=== PATIENT | male | born 1935 | race Caucasian/White ===

== ENCOUNTER 2020-12-30 06:23 | Day surgery (SDC) | payer MEDICARE ==
[2020-12-30] VITALS (9 sets, daily range): BP systolic 118–163; BP diastolic 66–102
[~2020-12-30] VITALS: Ht 175.3 cm; Wt 96.6 kg
[~2020-12-30 06:23] MED LIST: CEPH-571 PO
[2020-12-30] MEDS ORDERED: normal saline 1,000 ML IV SCH ×2 (06:55→10:55)
[2020-12-30] MEDS ORDERED: diphenhydrAMINE 25mg capsule PO PRN (06:55)
[2020-12-30] MEDS ORDERED: LOVA40TA2 PO (07:06)
[2020-12-30] MEDS ORDERED: LOSA1TAB41 PO (07:06)
[2020-12-30] MEDS ORDERED: FLO0.4C PO (07:06)
[2020-12-30] MEDS ORDERED: ASPI-1265 PO (07:11)
[2020-12-30] MEDS ORDERED: UBID200C18 PO (07:11)
[2020-12-30] MEDS ORDERED: MAGN250T11 PO (07:11)
[2020-12-30] MEDS ORDERED: VITAMIN C PO (07:11)
[2020-12-30 07:40] LABS: BASOPHILS % (AUTO) 0.5 % (0-1); EOSINOPHILS # (AUTO) 0.4 X10'3 (0-0.9); EOSINOPHILS % (AUTO) 9.5 % (0-6); HEMATOCRIT 41.8 % (42.0-52.0); HEMOGLOBIN 14.1 g/dl (14.0-17.9); LYMPHOCYTES # (AUTO) 0.8 X10'3 (1.1-4.8); LYMPHOCYTES % (AUTO) 18.3 % (21-51); MEAN CORPUSCULAR HEMOGLOBIN 32.5 PG (27.0-31.0); MEAN CORPUSCULAR HGB CONC 33.7 g/dL (33.0-36.5); MEAN CORPUSCULAR VOLUME 96.5 FL (78-98); MEAN PLATELET VOLUME 9.2 FL (7.4-10.4); MONOCYTES # (AUTO) 0.3 X10'3 (0-0.9); MONOCYTES % (AUTO) 6.8 % (2-12); NEUTROPHILS # (AUTO) 2.9 X10'3 (1.8-7.7); NEUTROPHILS % (AUTO) 64.9 % (42-75); PLATELET COUNT 153 X10'3 (140-440); RED BLOOD COUNT 4.34 X10'6 (4.70-6.10); RED CELL DISTRIBUTION WIDTH 13.2 % (11.5-14.5); WHITE BLOOD COUNT 4.5 X10'3 (4.5-11.0)
[2020-12-30 07:49] LABS: ALBUMIN 3.4 G/DL (3.4-5.0); ANION GAP 9 (8-16); BLOOD UREA NITROGEN 23 MG/DL (7-18); BUN/CREATININE RATIO 19.8 (5.4-32.0); CALCIUM 8.1 MG/DL (8.5-10.1); CHLORIDE 112 MMOL/L (99-107); CREATININE 1.16 MG/DL (0.60-1.10); GLUCOSE 166 MG/DL (70-104); MAGNESIUM 2.2 MG/DL (1.5-2.4); POTASSIUM 4.2 MMOL/L (3.5-5.1); SODIUM 146 MMOL/L (135-145); TOTAL CARBON DIOXIDE 25.1 MMOL/L (24-32); eGFR 60 ML/MIN
[2020-12-30] MEDS ORDERED: LIDOcaine 1% (10mg/ml)w/preservative injection 20ml MDV ONE (08:37)
[2020-12-30] MEDS ORDERED: midazolam 1 mg/ML 2ml injection ONE ×2 (08:37→09:30)
[2020-12-30] MEDS ORDERED: fentaNYL/PF 50MCG/1 ML 2ML syringe ONE (08:37)
[2020-12-30] MEDS ORDERED: iohexol 350 MG/ML 50ML vial IV ONE ×2 (08:38→09:54)
[2020-12-30] MEDS ORDERED: iohexol 350MG/ML 100ml bottle IV ONE (08:38)
[2020-12-30] MEDS ORDERED: heparin 1,000unit/ml 10ml vial 10 ML ONE (08:38)
[2020-12-30] MEDS ORDERED: HYDROcodone/acetaminophen 10/325mg tab PO PRN (10:55)
[2020-12-30] MEDS ORDERED: ondansetron/PF 4mg/2ml inj IV PRN (10:55)
[2020-12-30] MEDS ORDERED: proCHLORperazine 10 MG/2 ml inj IV PRN (10:55)
[2020-12-30] MEDS ORDERED: HYDROcodone/acetaminophen 5mg/325mg tablet PO PRN (10:55)
[2020-12-31] MEDS ORDERED: pneumococcal 23-VAL P-sac vacc 25 mcg/0.5ml vial IMVAC ONE (10:00)
== END 2020-12-30 13:40 | disposition home or self-care (01) ==
LOC: SSTAY O 06:23
PROVIDERS: ATTEND Internal Medicine Cardiovascular Disease
DX: R06.09 Other forms of dyspnea (principal); I35.0 Nonrheumatic aortic (valve) stenosis; I25.718 Atherosclerosis of autologous vein coronary artery bypass graft(s) with other forms of angina pectoris; I25.82 Chronic total occlusion of coronary artery; E78.5 Hyperlipidemia, unspecified; I10 Essential (primary) hypertension; I65.23 Occlusion and stenosis of bilateral carotid arteries; I70.213 Atherosclerosis of native arteries of extremities with intermittent claudication, bilateral legs; Z98.890 Other specified postprocedural states; Z79.899 Other long term (current) drug therapy; Z79.82 Long term (current) use of aspirin; Z82.49 Family history of ischemic heart disease and other diseases of the circulatory system; Z80.6 Family history of leukemia
CPT/HCPCS: 36415; 80048; 83735; 85025; 85610; 93005; 93461; 99152; 99153; C1760; C1769; C1894; J1644; J2001; J2250; J3010; Q9967; A4620; A6258; C1751

== ENCOUNTER → 2021-01-24 | Outpatient (CLI) | payer MEDICARE ==
[~2021-01-24] MED LIST changes: +ASCO-134 PO; +ASPI-1265 PO; -CEPH-571 PO; +CHOL20002 PO; +FLO0.4C PO; +IODIXANOL 320 MG/ML INFUS..BTL 100ML IV ONE; +IODIXANOL 320 MG/ML INFUS..BTL 50ML IV ONE; +LOSA1TAB41 PO; +LOVA40TA2 PO; +MAGN250T11 PO; +UBID200C18 PO; +VITAMIN C PO
[2021-01-24 09:43] LABS: BASOPHILS % (AUTO) 0.4 % (0-1); EOSINOPHILS # (AUTO) 0.2 X10'3 (0-0.9); EOSINOPHILS % (AUTO) 3.3 % (0-6); HEMATOCRIT 43.7 % (42.0-52.0); HEMOGLOBIN 14.7 g/dl (14.0-17.9); LYMPHOCYTES % (AUTO) 20.5 % (21-51); MEAN CORPUSCULAR HEMOGLOBIN 32.5 PG (27.0-31.0); MEAN CORPUSCULAR HGB CONC 33.6 g/dL (33.0-36.5); MEAN CORPUSCULAR VOLUME 96.8 FL (78-98); MONOCYTES # (AUTO) 0.4 X10'3 (0-0.9); MONOCYTES % (AUTO) 7.1 % (2-12); NEUTROPHILS # (AUTO) 3.5 X10'3 (1.8-7.7); NEUTROPHILS % (AUTO) 68.7 % (42-75); PLATELET COUNT 183 X10'3 (140-440); RED BLOOD COUNT 4.52 X10'6 (4.70-6.10); WHITE BLOOD COUNT 5.1 X10'3 (4.5-11.0)
[2021-01-24 10:11] LABS: ALANINE AMINOTRANSFERASE 24 U/L (12-78); ALBUMIN 3.6 G/DL (3.4-5.0); ALBUMIN/GLOBULIN RATIO 1.2 (1.1-1.5); ALKALINE PHOSPHATASE 54 IU/L (46-116); ANION GAP 10 (8-16); ASPARTATE AMINO TRANSFERASE 17 U/L (10-37); BILIRUBIN,TOTAL 0.8 MG/DL (0.1-1.0); BLOOD UREA NITROGEN 22 MG/DL (7-18); BUN/CREATININE RATIO 18.5 (5.4-32.0); CHLORIDE 109 MMOL/L (99-107); CREATININE 1.19 MG/DL (0.60-1.10); GLUCOSE 139 MG/DL (70-104); POTASSIUM 4.4 MMOL/L (3.5-5.1); SODIUM 144 MMOL/L (135-145); TOTAL PROTEIN 6.6 G/DL (6.4-8.2); eGFR 58 ML/MIN
[2021-01-24 10:15] LABS: CALCIUM 8.6 MG/DL (8.5-10.1)
[2021-01-24 10:51] LABS: PARTIAL THROMBOPLASTIN TIME 32 SECONDS (22-32)
== END | disposition home or self-care (01) ==
LOC: RAD 09:02
PROVIDERS: ATTEND Internal Medicine Cardiovascular Disease
DX: K57.30 Diverticulosis of large intestine without perforation or abscess without bleeding (principal); K80.20 Calculus of gallbladder without cholecystitis without obstruction; R16.1 Splenomegaly, not elsewhere classified; N40.0 Benign prostatic hyperplasia without lower urinary tract symptoms; I70.0 Atherosclerosis of aorta; I71.2 Thoracic aortic aneurysm, without rupture; I25.10 Atherosclerotic heart disease of native coronary artery without angina pectoris; I08.0 Rheumatic disorders of both mitral and aortic valves; I65.23 Occlusion and stenosis of bilateral carotid arteries
CPT/HCPCS: 36415; 71046; 71275; 74174; 80053; 85025; 85610; 85730; 93306; 93880; 94010; 94727; 94729; Q9967

== ENCOUNTER 2021-02-13 07:50 | Inpatient (IN) | payer MEDICARE ==
[2021-02-11 12:42] LABS: CLARITY,URINE CLEAR (Clear); COLOR,URINE YELLOW (Yellow); GLUCOSE, URINE NEGATIVE (Neg); KETONES,URINE NEGATIVE (Neg); LEUKOCYTE ESTERASE ,URINE NEGATIVE (Neg); NITRITES, URINE NEGATIVE (Neg); OCCULT BLOOD,URINE NEGATIVE (Neg); PROTEIN,URINE NEGATIVE (Neg); UA COLLECTION TYPE CLN CATCH MIDSTREAM; UROBILINOGEN,URINE 0.2 E.U/dL (0.2-1.0)
[2021-02-11 12:45] LABS: BASOPHILS % (AUTO) 0.3 % (0-1); EOSINOPHILS # (AUTO) 0.2 X10'3 (0-0.9); EOSINOPHILS % (AUTO) 2.8 % (0-6); LYMPHOCYTES # (AUTO) 0.8 X10'3 (1.1-4.8); LYMPHOCYTES % (AUTO) 11.8 % (21-51); MEAN CORPUSCULAR HGB CONC 34.2 g/dL (33.0-36.5); MEAN CORPUSCULAR VOLUME 96.6 FL (78-98); MEAN PLATELET VOLUME 9.2 FL (7.4-10.4); MONOCYTES # (AUTO) 0.5 X10'3 (0-0.9); NEUTROPHILS # (AUTO) 5.1 X10'3 (1.8-7.7); NEUTROPHILS % (AUTO) 78.1 % (42-75); PRE OP HEMATOCRIT 43.4 % (42.0-52.0); PRE OP HEMOGLOBIN 14.9 g/dL (14.0-17.9); PRE OP PLATELET COUNT 183 X10'3 (140-440); RED CELL DISTRIBUTION WIDTH 13.6 % (11.5-14.5)
[2021-02-11 12:55] LABS: PRE OP INR 1.1 INR
[2021-02-11 12:56] LABS: ALBUMIN 3.6 G/DL (3.4-5.0); ALBUMIN/GLOBULIN RATIO 1.1 (1.1-1.5); ALKALINE PHOSPHATASE 62 IU/L (46-116); BLOOD UREA NITROGEN 20 MG/DL (7-18); BUN/CREATININE RATIO 19.8 (5.4-32.0); CALCIUM 8.8 MG/DL (8.5-10.1); CHLORIDE 106 MMOL/L (99-107); CREATININE 1.01 MG/DL (0.60-1.10); PRE OP ALT 22 U/L (30-65); PRE OP ANION GAP 10 (8-16); PRE OP AST 20 U/L (10-37); PRE OP GLUCOSE 133 MG/DL (70-104); PRE OP POTASSIUM 4.1 MMOL/L (3.4-5.1); PRE OP SODIUM 142 MMOL/L (135-145); TOTAL CARBON DIOXIDE 25.7 MMOL/L (24-32); TOTAL PROTEIN 6.8 G/DL (6.4-8.2); eGFR 70 ML/MIN
[2021-02-13] VITALS (32 sets, daily range): BP systolic 118–196; BP diastolic 61–125
[~2021-02-13] VITALS: Ht 175.3 cm; Wt 95.1 kg
[2021-02-13] MEDS: nitroPRUSSIDE (NIPRIDE) (200MCG/ML) 100ML Drip IV SCH ×2 (05:30→19:19)
[~2021-02-13 07:50] MED LIST changes: -IODIXANOL 320 MG/ML INFUS..BTL 100ML IV ONE; -IODIXANOL 320 MG/ML INFUS..BTL 50ML IV ONE; -VITAMIN C PO; +aspirin 325mg tablet PO ONE; +cefazolin/dext.iso 2gm/100ml IV ONE; +famotidine 20mg tablet PO ONE; +ondansetron/PF 4mg/2ml inj IV PRN; +phenylephrine 50 MG in NS 250ml IVPB IV SCH; +ringers solution, lacted 1,000 ML IV SCH
[2021-02-13] MEDS: phenylephrine 50 MG in NS 250ml IVPB IV SCH (08:25)
[2021-02-13] MEDS ORDERED: iohexol 350 MG/ML 50ML vial IV ONE (10:54)
[2021-02-13] MEDS ORDERED: iohexol 350MG/ML 100ml bottle IV ONE (10:54)
[2021-02-13] MEDS ORDERED: LIDOcaine 1% (10mg/ml)w/preservative injection 20ml MDV ONE (10:54)
[2021-02-13] MEDS ORDERED: heparin 1,000 UNITS/NS 500ml 1,500 ML ONE (10:54)
[2021-02-13] MEDS ORDERED: magnesium 4gm in 100ml NS 100 ML IV PRN (10:55)
[2021-02-13] MEDS ORDERED: potassium CL 10mEq/100ml bag 100 ML IV PRN (10:55)
[2021-02-13] MEDS ORDERED: ondansetron/PF 4mg/2ml inj IV PRN ×2 (10:55→12:35)
[2021-02-13] MEDS ORDERED: labetalol 20mg/4ml (5mg/ml) syringe IV PRN (10:55)
[2021-02-13] MEDS ORDERED: potassium Cl 40MEQ/1/2NS 520ml 520 ML IV PRN (10:55)
[2021-02-13] MEDS ORDERED: potassium Cl 20 mEq SR tablet PO PRN (10:55)
[2021-02-13] MEDS ORDERED: magnesium 2GM in 50ml NS 50 ML IV PRN (10:55)
[2021-02-13] MEDS ORDERED: acetaminophen 325mg tablet PO PRN (10:55)
[2021-02-13] MEDS ORDERED: docusate sod 100mg capsule PO PRN (10:55)
[2021-02-13] MEDS ORDERED: diphenhydrAMINE 25mg capsule PO PRN (10:55)
[2021-02-13] MEDS ORDERED: pantoprazole 40mg Tablet.DR PO PRN (10:55)
[2021-02-13] MEDS ORDERED: fentaNYL/PF 50MCG/1 ML 2ML syringe ONE (11:05)
[2021-02-13] MEDS ORDERED: midazolam 1 mg/ML 2ml injection ONE ×2 (11:05→11:31)
[2021-02-13] MEDS ORDERED: propofol inj 20 ML IV ONE ×2 (11:09)
[2021-02-13] MEDS ORDERED: heparin 1,000unit/ml 10ml vial 10 ML ONE (11:33)
[2021-02-13] MEDS ORDERED: protamine sulfate 10mg/ml inj. ONE (12:30)
[2021-02-13] MEDS ORDERED: meperidine/PF 25mg/ml syringe IV PRN ×3 (12:35)
[2021-02-13] MEDS ORDERED: morphine 2 MG/ML inj. syringe IV PRN (12:35)
[2021-02-13] MEDS ORDERED: morphine 4 MG/ML inj SYRINge IV PRN (12:35)
[2021-02-13] MEDS ORDERED: ringers solution, lacted 1,000 ML IV SCH (12:35)
[2021-02-13] MEDS ORDERED: proCHLORperazine 10 MG/2 ml inj IV PRN (12:35)
--- NOTE | 2021-02-13 12:42 | NUR ---
Received from OR via [facility] IN STABLE CONDITION , accompanied by CARDIOLOGY TECHNOLOGIST AND Anesthesiologist. Report given by CARDIOLOGY TECHNOLOGIST AND Anesthesiolgist. Addendum: 02/13/21 at 1516 by Georgina Strong RN Amended: Links added.
[2021-02-13] MEDS: hydrALAZINE 20mg/ml inj. IV PRN ×2 (13:10→14:51)
--- NOTE | 2021-02-13 14:12 | NUR ---
Received from OR via [facility] IN STABEL CONDITION , accompanied by Anesthesiologist and ASSISTANT DIRECTOR OF FINANCIAL AID report given by ASSISTANT DIRECTOR OF FINANCIAL AID AND Anesthesiolgist. Addendum: 02/13/21 at 1708 by Georgina Strong RN Amended: Links added.
--- NOTE | 2021-02-13 14:30 | NUR ---
ARTIRIAL RADIAL PRESSURE CUFF DC'D Addendum: 02/13/21 at 1522 by Georgina Strong RN Amended: Links added.
--- NOTE | 2021-02-13 15:00 | NUR ---
PATIENT BLADDER SCANNED FOR 1086 ML. TELLEZ CATHETER PLACED. Addendum: 02/13/21 at 1523 by Georgina Strong RN Amended: Links added.
--- NOTE | 2021-02-13 15:52 | NUR ---
PATIENT DISCHARGED FROM PACU IN STABLE CONDITION AFTER REPORT GIVEN. PATIENT TRANSFERRED VIA BED ON MONITOR WITH RN AND LOBBY PORTER. ART LINE PULLED AT 1550. Addendum: 02/13/21 at 1607 by Georgina Strong RN Amended: Links added.
[2021-02-13] MEDS: ceFAZolin 1GM/D5W- ADD-VANTAGE 50 ML IV SCH (17:30)
[2021-02-13] MEDS: normal saline 1000ml 1,000 ML IV SCH ×2 (17:32→20:18)
[2021-02-13] MEDS: sod chloride 0.9% 10ml flush syringe IV SCH (17:32)
[2021-02-13] MEDS ORDERED: LIDOcaine 2% 10ml TOPICAL JELLY (Urojet) TP ONE (18:00)
--- NOTE | 2021-02-13 18:16 | NUR ---
Called [facility] d/t high BP - give 02/14 0800 sched losartan now and NOT in the AM. Also, added PRN hydralazine order per [facility].
[2021-02-13] MEDS ORDERED: hydrALAZINE 20mg/ml inj. IV PRN (18:20)
[2021-02-13] MEDS ORDERED: losartan 50mg tablet PO ONE (18:25)
--- NOTE | 2021-02-13 18:27 | NUR ---
Pharmacy is not avail at this time review medication. CRN not able to override. called and messaged pharmacy to review STAT/
--- NOTE | 2021-02-13 18:33 | NUR ---
Patient in room PCU 3016. I have received report from Mony ESTEVEZ and had the opportunity to ask questions and assume patient care.
--- NOTE | 2021-02-13 19:01 | NUR ---
Problems reprioritized. Patient report given, questions answered & plan of care reviewed with HERB Wood.
[2021-02-13] MEDS: vancomycin/NS 1 GM ADD-VANTAGE 250 ML IV SCH (20:16)
[2021-02-14] VITALS: BP 168/72
[2021-02-14] MEDS: ceFAZolin 1GM/D5W- ADD-VANTAGE 50 ML IV SCH ×2 (00:33→07:25)
[2021-02-14] MEDS: sod chloride 0.9% 10ml flush syringe IV SCH ×2 (00:33→09:13)
[2021-02-14] MEDS: phenylephrine 50 MG in NS 250ml IVPB IV SCH (01:41)
[2021-02-14 02:00] VITALS: BP_SYST 133; BP_SYST 143; BP_DIAS 58; BP_DIAS 93
[2021-02-14 04:00] VITALS: BP 162/73
[2021-02-14 06:00] VITALS: BP 166/69
--- NOTE | 2021-02-14 06:43 | NUR ---
Problems reprioritized. Patient report given, questions answered & plan of care reviewed with DARYL ESTEVEZ.
[2021-02-14] MEDS: normal saline 1000ml 1,000 ML IV SCH (06:55)
[2021-02-14 06:56] LABS: BASOPHILS % (AUTO) 0.3 % (0-1); EOSINOPHILS # (AUTO) 0.3 X10'3 (0-0.9); EOSINOPHILS % (AUTO) 4.6 % (0-6); HEMATOCRIT 37.3 % (42.0-52.0); HEMOGLOBIN 13.1 g/dl (14.0-17.9); LYMPHOCYTES # (AUTO) 0.8 X10'3 (1.1-4.8); LYMPHOCYTES % (AUTO) 11.8 % (21-51); MEAN CORPUSCULAR HEMOGLOBIN 33.2 PG (27.0-31.0); MEAN CORPUSCULAR VOLUME 94.6 FL (78-98); MEAN PLATELET VOLUME 9.1 FL (7.4-10.4); MONOCYTES # (AUTO) 0.5 X10'3 (0-0.9); MONOCYTES % (AUTO) 7.4 % (2-12); NEUTROPHILS # (AUTO) 4.9 X10'3 (1.8-7.7); NEUTROPHILS % (AUTO) 75.9 % (42-75); PLATELET COUNT 135 X10'3 (140-440); RED BLOOD COUNT 3.95 X10'6 (4.70-6.10); RED CELL DISTRIBUTION WIDTH 13.3 % (11.5-14.5); WHITE BLOOD COUNT 6.4 X10'3 (4.5-11.0)
[2021-02-14 07:27] LABS: ALANINE AMINOTRANSFERASE 18 U/L (12-78); ALBUMIN 2.9 G/DL (3.4-5.0); ALBUMIN/GLOBULIN RATIO 1.1 (1.1-1.5); ALKALINE PHOSPHATASE 54 IU/L (46-116); ANION GAP 12 (8-16); ASPARTATE AMINO TRANSFERASE 19 U/L (10-37); BILIRUBIN,TOTAL 1.2 MG/DL (0.1-1.0); BLOOD UREA NITROGEN 15 MG/DL (7-18); CALCIUM 8.1 MG/DL (8.5-10.1); CHLORIDE 111 MMOL/L (99-107); CREATININE 0.94 MG/DL (0.60-1.10); GLUCOSE 141 MG/DL (70-104); MAGNESIUM 1.9 MG/DL (1.5-2.4); POTASSIUM 3.8 MMOL/L (3.5-5.1); SODIUM 145 MMOL/L (135-145); TOTAL CARBON DIOXIDE 22.5 MMOL/L (24-32); TOTAL PROTEIN 5.5 G/DL (6.4-8.2); eGFR 76 ML/MIN
[2021-02-14] MEDS ORDERED: atorvastatin 10mg tablet PO SCH (08:00)
[2021-02-14] MEDS ORDERED: aspirin 81mg tab.chew PO SCH (08:00)
[2021-02-14] MEDS ORDERED: HYDROchlorothiazide 12.5mg capsule PO SCH (08:00)
[2021-02-14] MEDS ORDERED: tamsulosin 0.4mg capsule PO SCH (08:00)
[2021-02-14] MEDS ORDERED: ascorbic acid 500mg tablet PO SCH (08:00)
[2021-02-14] MEDS ORDERED: cholecalciferol (vitamin D3) 1,000 unit (25mcg) tablet PO SCH (08:00)
[2021-02-14] MEDS ORDERED: non-formulary drug (Ubidecarenone (Co Q-10) 1 CAP) PO SCH (08:00)
[2021-02-14] MEDS ORDERED: magnesium oxide 400mg tablet PO SCH (08:00)
[2021-02-14] MEDS: vancomycin/NS 1 GM ADD-VANTAGE 250 ML IV SCH (09:13)
[2021-02-14 11:00] VITALS: BP 160/79
--- NOTE | 2021-02-14 14:00 | NUR ---
Pt is stable for D/C Pt is stable for D/C per MD orders. All d/c ppwk and follow up appts have been reviewed with special attention to follow up appts along with highlighted appts in d/c folder. Pt has verbalized understanding. PIV's removed x2 - pt tolerated well. No new RX prescribed. All personal belongings sent with patient. Pt was wheeled out, by nursing staff, to private vehicle where was waiting. All questions, comments and concerns were answered before D/C.
[2021-02-14] MEDS ORDERED: losartan 50mg tablet PO SCH (20:00)
== END 2021-02-14 14:13 | disposition home or self-care (01) | DRG 267 ==
LOC: PAS IN 07:50 → UNDOADMIN 07:50 → EDSTATUS 10:00 → PAS IN 10:58 → PCU 3S 16:15
PROVIDERS: ADMIT Internal Medicine Cardiovascular Disease; ATTEND Internal Medicine Cardiovascular Disease
PROC: B24BZZ4 Ultrasonography of Heart with Aorta, Transesophageal (ICD-10-PCS; 2021-02-13)
PROC: B41D1ZZ Fluoroscopy of Aorta and Bilateral Lower Extremity Arteries using Low Osmolar Contrast (ICD-10-PCS; 2021-02-13)
PROC: 02RF38Z Replacement of Aortic Valve with Zooplastic Tissue, Percutaneous Approach (ICD-10-PCS; principal; 2021-02-13 11:04)
DX: I35.0 Nonrheumatic aortic (valve) stenosis (principal); Z00.6 Encounter for examination for normal comparison and control in clinical research program; I25.10 Atherosclerotic heart disease of native coronary artery without angina pectoris; I70.202 Unspecified atherosclerosis of native arteries of extremities, left leg; Z95.1 Presence of aortocoronary bypass graft
CPT/HCPCS: 33361; 36415; 71045; 80053; 81003; 82948; 83735; 83880; 85025; 85347; 85610; 85730; 86885; 86900; 86901; 86920; 87081; 87635; 93005; 93308; A4618; A6258; A6449; C1756; C1760; C1769; C1894; G0378; J0360; J0690; J1644; J2001; J2250; J2704; J2720; J3010; J3370; J7030; J7040; J7120; Q9967

== ENCOUNTER 2021-03-13 14:24 | Outpatient (CLI) | payer MEDICARE ==
[~2021-03-13] VITALS: Ht 172.7 cm; Wt 96.1 kg
[~2021-03-13 14:24] MED LIST changes: -aspirin 325mg tablet PO ONE; -cefazolin/dext.iso 2gm/100ml IV ONE; -famotidine 20mg tablet PO ONE; -ondansetron/PF 4mg/2ml inj IV PRN; -phenylephrine 50 MG in NS 250ml IVPB IV SCH; -ringers solution, lacted 1,000 ML IV SCH
[2021-03-13 16:42] VITALS: BP 169/88
--- NOTE | 2021-03-13 16:44 | NUR ---
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 Swanson. KCQ12 completed. Walk test completed. Vital signs measured. Echo and EKG reviewed with patient along with current condition of patients symptoms.
== END 2021-03-13 23:59 | disposition home or self-care (01) ==
LOC: TAVR 14:24
PROVIDERS: ATTEND Internal Medicine Cardiovascular Disease
DX: I10 Essential (primary) hypertension (principal); Z95.2 Presence of prosthetic heart valve; Z48.812 Encounter for surgical aftercare following surgery on the circulatory system
CPT/HCPCS: 93005

== ENCOUNTER → 2021-06-27 | Day surgery (SDC) | payer MEDICARE ==
[2021-06-20 12:01] LABS: BASOPHILS % (AUTO) 0.2 % (0-1); EOSINOPHILS # (AUTO) 0.1 X10'3 (0-0.9); EOSINOPHILS % (AUTO) 2.1 % (0-6); LYMPHOCYTES # (AUTO) 0.8 X10'3 (1.1-4.8); LYMPHOCYTES % (AUTO) 17.4 % (21-51); MEAN CORPUSCULAR HEMOGLOBIN 32.1 PG (27.0-31.0); MEAN CORPUSCULAR VOLUME 94.4 FL (78-98); MONOCYTES # (AUTO) 0.3 X10'3 (0-0.9); MONOCYTES % (AUTO) 7.1 % (2-12); NEUTROPHILS # (AUTO) 3.3 X10'3 (1.8-7.7); NEUTROPHILS % (AUTO) 73.2 % (42-75); PRE OP HEMATOCRIT 44.6 % (42.0-52.0); PRE OP HEMOGLOBIN 15.2 g/dL (14.0-17.9); PRE OP PLATELET COUNT 122 X10'3 (140-440); RED BLOOD COUNT 4.72 X10'6 (4.70-6.10); RED CELL DISTRIBUTION WIDTH 13.2 % (11.5-14.5)
[2021-06-20 12:11] LABS: CLARITY,URINE CLEAR (Clear); COLOR,URINE YELLOW (Yellow); GLUCOSE, URINE NEGATIVE (Neg); KETONES,URINE NEGATIVE (Neg); LEUKOCYTE ESTERASE ,URINE NEGATIVE (Neg); NITRITES, URINE NEGATIVE (Neg); OCCULT BLOOD,URINE NEGATIVE (Neg); PH,URINE 6.5 (4.8-8.0); PROTEIN,URINE NEGATIVE (Neg)
[2021-06-20 12:13] LABS: UA COLLECTION TYPE CLN CATCH MIDSTREAM
[2021-06-20 12:20] LABS: ALBUMIN 3.6 G/DL (3.4-5.0); ALBUMIN/GLOBULIN RATIO 1.3 (1.1-1.5); ALKALINE PHOSPHATASE 58 IU/L (46-116); BLOOD UREA NITROGEN 16 MG/DL (7-18); BUN/CREATININE RATIO 14.3 (5.4-32.0); CALCIUM 8.5 MG/DL (8.5-10.1); CHLORIDE 105 MMOL/L (99-107); CREATININE 1.12 MG/DL (0.60-1.10); PRE OP ALT 26 U/L (30-65); PRE OP ANION GAP 10 (8-16); PRE OP AST 21 U/L (10-37); PRE OP BILIRUB, TOTAL 0.7 MG/DL (0.0-1.0); PRE OP GLUCOSE 177 MG/DL (70-104); PRE OP POTASSIUM 4.3 MMOL/L (3.4-5.1); PRE OP SODIUM 142 MMOL/L (135-145); TOTAL CARBON DIOXIDE 26.9 MMOL/L (24-32); TOTAL PROTEIN 6.3 G/DL (6.4-8.2); eGFR 62 ML/MIN
[~2021-06-27] VITALS: Ht 175.3 cm; Wt 95.3 kg
[~2021-06-27] MED LIST changes: +cefazolin/dext.iso 2gm/50ml IV ONE; +famotidine 20mg tablet PO ONE; +fentaNYL/PF 50MCG/1 ML 2ML syringe IV PRN; +hydrALAZINE 20mg/ml inj. IV PRN; +labetalol 20mg/4ml (5mg/ml) syringe IV PRN; +morphine 2 MG/ML inj. syringe IV PRN; +morphine 4 MG/ML inj SYRINge IV PRN; +ondansetron/PF 4mg/2ml inj IV PRN; +ringers solution, lacted 1,000 ML IV SCH
== END | disposition home or self-care (01) ==
LOC: PAS 06:21
PROVIDERS: ATTEND Podiatrist Foot & Ankle Surgery
DX: M20.41 Other hammer toe(s) (acquired), right foot (principal); Z53.8 Procedure and treatment not carried out for other reasons; Z20.822 Contact with and (suspected) exposure to COVID-19
CPT/HCPCS: 36415; 80053; 81003; 85025; J0690; J7120; U0003; U0005

== ENCOUNTER 2021-07-04 07:02 | Day surgery (SDC) | payer MEDICARE ==
[2021-07-04] VITALS (7 sets, daily range): BP systolic 110–185; BP diastolic 80–98
[~2021-07-04] VITALS: Ht 172.7 cm; Wt 94.0 kg
[~2021-07-04 07:02] MED LIST changes: -fentaNYL/PF 50MCG/1 ML 2ML syringe IV PRN; -hydrALAZINE 20mg/ml inj. IV PRN; -labetalol 20mg/4ml (5mg/ml) syringe IV PRN; -morphine 2 MG/ML inj. syringe IV PRN; -morphine 4 MG/ML inj SYRINge IV PRN; -ondansetron/PF 4mg/2ml inj IV PRN
[2021-07-04] MEDS ORDERED: morphine 4 MG/ML inj SYRINge IV PRN (09:20)
[2021-07-04] MEDS ORDERED: ringers solution, lacted 1,000 ML IV SCH (09:20)
[2021-07-04] MEDS ORDERED: morphine 2 MG/ML inj. syringe IV PRN (09:20)
[2021-07-04] MEDS ORDERED: fentaNYL/PF 50MCG/1 ML 2ML syringe IV PRN ×2 (09:20)
[2021-07-04] MEDS ORDERED: ondansetron/PF 4mg/2ml inj IV PRN (09:20)
[2021-07-04] MEDS ORDERED: hydrALAZINE 20mg/ml inj. IV PRN (09:20)
[2021-07-04] MEDS ORDERED: labetalol 20mg/4ml (5mg/ml) syringe IV PRN (09:20)
[2021-07-04] MEDS ORDERED: bacitracin 15gm ointment TP ONE (09:52)
[2021-07-04] MEDS ORDERED: dexamethasone sod phosphate 10mg/ml inj ONE (10:58)
[2021-07-04] MEDS ORDERED: sevoflurane 250ml liquid IH ONE (10:58)
[2021-07-04] MEDS ORDERED: fentaNYL/PF 50MCG/1 ML 2ML syringe ONE (10:59)
[2021-07-04] MEDS ORDERED: LIDOcaine 2% (20mg/ml) 5ml vial ONE (11:00)
[2021-07-04] MEDS ORDERED: propofol inj 20 ML IV ONE (11:00)
[2021-07-04] MEDS ORDERED: ondansetron/PF 4mg/2ml inj ONE (11:01)
[2021-07-04] MEDS ORDERED: ROPIVAcaine 0.5% (5mg/ml) 30ml vial ONE (11:01)
[2021-07-04] MEDS ORDERED: ePHEDrine 50MG/ML INJ. ONE (11:15)
--- NOTE | 2021-07-04 12:10 | NUR ---
Received from OR via [facility] , accompanied by Anesthesiologist ASA and report given by Anesthesiolgist. FOOT OF BED GATCHED. BOOT ON RIGHT LE. 2 PINS PXPOSED. + CAP REFILL AND BLANCHING OF TOES. PATIENT WITH 10L MASK ON WITH 100% SATURATIONS. PATIENT WITH VSS. 20G PIV IN LEFT UE. Addendum: 07/04/21 at 1250 by Mark Jaffe RN, RN Amended: Links added.
--- NOTE | 2021-07-04 13:10 | NUR ---
ALL DC CRITERIA FOR HOME HAS BEEN ACHIEVED. VSS. DENIES PAIN DRESSINGS ARE CDI AND PATIENT ABLE TO SAFELY TRANSFER FROM GURNEY TO WHEELCHAIR TO CAR WITH NO ASSIST. PATIENT GIVEN ALL DISCHARGE INSTRUCTIONS AND SHOWED GOOD UNDERSTANDING ON THE. ALL QUESTIONS ANSWERED. BOOT ON RIGHT LE. DRESSINGS CDI AT THIS TIME. DROVE PATIENT HOME. Addendum: 07/04/21 at 1332 by Mark Jaffe RN, RN Amended: Links added.
== END 2021-07-04 13:10 | disposition home or self-care (01) ==
LOC: PAS 07:02
PROVIDERS: ATTEND Podiatrist Foot & Ankle Surgery
DX: M20.41 Other hammer toe(s) (acquired), right foot (principal); M25.871 Other specified joint disorders, right ankle and foot; G89.18 Other acute postprocedural pain; I25.10 Atherosclerotic heart disease of native coronary artery without angina pectoris; I10 Essential (primary) hypertension; N40.0 Benign prostatic hyperplasia without lower urinary tract symptoms; Z79.899 Other long term (current) drug therapy; Z79.82 Long term (current) use of aspirin; Z98.890 Other specified postprocedural states; Z72.89 Other problems related to lifestyle; Z95.1 Presence of aortocoronary bypass graft; Z87.891 Personal history of nicotine dependence; Z82.49 Family history of ischemic heart disease and other diseases of the circulatory system; Z80.9 Family history of malignant neoplasm, unspecified
CPT/HCPCS: 28270; 28285; 64447; 64450; 73620; 76000; 82948; A6223; C1713; J2405; J2704; J2795; J3010; J3490; J7030; J7120; Z7506; Z7508; Z7512; A4618; A6253; A6449; A7000; J0690; J1100

== ENCOUNTER 2021-12-05 07:02 | Day surgery (SDC) | payer MEDICARE ==
[2021-12-05] VITALS (15 sets, daily range): BP systolic 158–230; BP diastolic 86–119
[~2021-12-05] VITALS: Ht 172.7 cm; Wt 93.6 kg
[~2021-12-05 07:02] MED LIST changes: -ASCO-134 PO; +BUPIVAcaine/PF 2.5mg/ml (0.25%) 10ml vial ONE; -CHOL20002 PO; +CLOP75TA34 PO; -MAGN250T11 PO; -UBID200C18 PO; +bacitracin 15gm ointment TP ONE; +ceFAZolin inj. 2,000 MG in dextrose 5%-water 100 ML IV ONE; -cefazolin/dext.iso 2gm/50ml IV ONE
[2021-12-05] MEDS ORDERED: morphine 2 MG/ML inj. syringe IV PRN (07:45)
[2021-12-05] MEDS ORDERED: ringers solution, lacted 1,000 ML IV SCH (07:45)
[2021-12-05] MEDS ORDERED: proCHLORperazine 10 MG/2 ml inj IV PRN (07:45)
[2021-12-05] MEDS ORDERED: ondansetron/PF 4mg/2ml inj IV PRN (07:45)
[2021-12-05] MEDS ORDERED: morphine 4 MG/ML inj SYRINge IV PRN (07:45)
[2021-12-05] MEDS ORDERED: meperidine/PF 25mg/ml syringe IV PRN ×3 (07:45)
[2021-12-05 08:49] LABS: CLARITY,URINE CLEAR (Clear); COLOR,URINE YELLOW (Yellow); GLUCOSE, URINE NEGATIVE (Neg); KETONES,URINE NEGATIVE (Neg); LEUKOCYTE ESTERASE ,URINE NEGATIVE (Neg); NITRITES, URINE NEGATIVE (Neg); OCCULT BLOOD,URINE NEGATIVE (Neg); PROTEIN,URINE NEGATIVE (Neg)
[2021-12-05 08:51] LABS: UA COLLECTION TYPE VOIDED
[2021-12-05 08:54] LABS: BASOPHILS % (AUTO) 0.5 % (0-1); EOSINOPHILS # (AUTO) 0.2 X10'3 (0-0.9); EOSINOPHILS % (AUTO) 4.5 % (0-6); LYMPHOCYTES # (AUTO) 0.7 X10'3 (1.1-4.8); LYMPHOCYTES % (AUTO) 15.3 % (21-51); MEAN CORPUSCULAR HEMOGLOBIN 32.7 PG (27.0-31.0); MEAN CORPUSCULAR HGB CONC 34.1 g/dL (33.0-36.5); MEAN CORPUSCULAR VOLUME 95.8 FL (78-98); MEAN PLATELET VOLUME 9.3 FL (7.4-10.4); MONOCYTES # (AUTO) 0.4 X10'3 (0-0.9); MONOCYTES % (AUTO) 7.3 % (2-12); NEUTROPHILS # (AUTO) 3.5 X10'3 (1.8-7.7); NEUTROPHILS % (AUTO) 72.4 % (42-75); PRE OP HEMATOCRIT 41.7 % (42.0-52.0); PRE OP HEMOGLOBIN 14.2 g/dL (14.0-17.9); PRE OP PLATELET COUNT 162 X10'3 (140-440); RED BLOOD COUNT 4.36 X10'6 (4.70-6.10); RED CELL DISTRIBUTION WIDTH 13.4 % (11.5-14.5)
[2021-12-05 08:59] LABS: ALBUMIN 3.4 G/DL (3.4-5.0); ALBUMIN/GLOBULIN RATIO 1.1 (1.1-1.5); ALKALINE PHOSPHATASE 45 IU/L (46-116); BLOOD UREA NITROGEN 22 MG/DL (7-18); BUN/CREATININE RATIO 18.8 (5.4-32.0); CALCIUM 8.6 MG/DL (8.5-10.1); CHLORIDE 110 MMOL/L (99-107); CREATININE 1.17 MG/DL (0.60-1.10); PRE OP ALT 23 U/L (30-65); PRE OP ANION GAP 9 (8-16); PRE OP AST 21 U/L (10-37); PRE OP BILIRUB, TOTAL 0.8 MG/DL (0.0-1.0); PRE OP GLUCOSE 145 MG/DL (70-104); PRE OP POTASSIUM 4.4 MMOL/L (3.4-5.1); PRE OP SODIUM 143 MMOL/L (135-145); TOTAL CARBON DIOXIDE 23.8 MMOL/L (24-32); TOTAL PROTEIN 6.4 G/DL (6.4-8.2); eGFR 59 ML/MIN
[2021-12-05] MEDS ORDERED: fentaNYL/PF 50MCG/1 ML 2ML syringe ONE (09:44)
[2021-12-05] MEDS ORDERED: MIDAZolam 1 MG/ML 5ML VIAL ONE (09:44)
[2021-12-05] MEDS ORDERED: propofol inj 20 ML IV ONE (10:08)
--- NOTE | 2021-12-05 10:11 | NUR ---
Received from OR via [facility], accompanied by Anesthesiologist GRACIE and report given by Anesthesiolgist. PT AWAKE AND ASKING/ANSWERING QUESTIONS APPROPRIATELY, MOVES ALL EXTREMITIES. PT PLACED ON BEDSIDE MONITOR, VSS. PT IS IN NSR WITH RATE IN 60'S. PT HAS 20G PIV TO LT HAND AND HAS LR INFUSING ORDERED. DRSG TO RT FOOT IS CDI. LEG IS ELEVATED, PT DENIES PAIN AT THIS TIME. WILL CONTINUE TO ASSESS.
[2021-12-05] MEDS ORDERED: hydrALAZINE 20mg/ml inj. IV ONE (11:30)
--- NOTE | 2021-12-05 11:34 | NUR ---
DR. BOWMAN NOTIFIED OF PT'S HYPERTENSION. TELEPHONE ORDER RECEIVED TO GIVE 10MG HYDRALAZINE IVP. WILL ADMINISTER SOON IT IS AVAILABLE FORM PHARMACY.
--- NOTE | 2021-12-05 12:10 | NUR ---
HYDRALAZINE WAS EFFECTIVE AND PT'S SBP IS NOW IS 160'S.
--- NOTE | 2021-12-05 12:31 | NUR ---
ALL DISCHARGE CRITERIA HAS BEEN MET. VSS, PAIN AT A TOLERABLE LEVEL, VOIDING AND ABLE TO SAFELY AMBULATE AND TRANSFER SELF. IV TAKEN OUT WITHOUT ANY COMPLICATIONS. ALL DISCHARGE INSTRUCTIONS COVERED WITH PATIENT AND ALL QUESTIONS ANSWERED. PATIENT TAKEN OUT VIA WHEELCHAIR TO PERSONAL VEHICLE WHERE DROVE PATIENT HOME.
== END 2021-12-05 12:31 | disposition home or self-care (01) ==
LOC: PAS 07:02
PROVIDERS: ATTEND Podiatrist Foot & Ankle Surgery
DX: L08.9 Local infection of the skin and subcutaneous tissue, unspecified (principal); M21.6X1 Other acquired deformities of right foot; M20.41 Other hammer toe(s) (acquired), right foot; Z79.899 Other long term (current) drug therapy; Z98.890 Other specified postprocedural states
CPT/HCPCS: 28825; 36415; 80053; 81003; 82948; 85025; 87811; 93005; A6222; J0360; J0690; J2250; J2704; J3010; J3490; J7030; J7060; J7120; Z7506; Z7512; A4618; A6449; A7000

== ENCOUNTER 2021-12-20 17:31 | Emergency (ER) | payer MEDICARE ==
[~2021-12-20] VITALS: Ht 172.7 cm; Wt 94.0 kg
[~2021-12-20 17:31] MED LIST changes: -BUPIVAcaine/PF 2.5mg/ml (0.25%) 10ml vial ONE; -bacitracin 15gm ointment TP ONE; -ceFAZolin inj. 2,000 MG in dextrose 5%-water 100 ML IV ONE; -famotidine 20mg tablet PO ONE; -ringers solution, lacted 1,000 ML IV SCH
--- NOTE | 2021-12-20 20:10 | NUR ---
notified Dr. Dugan of high bp of /.
[2021-12-20] MEDS ORDERED: DOXYCYCLINE 100MG CAPSULE PO STA (22:58)
[2021-12-20] MEDS ORDERED: DOXY-1 PO (22:58)
[2021-12-20] MEDS ORDERED: CEPH-585 PO (22:58)
[2021-12-20] MEDS ORDERED: losartan 50mg tablet PO STA (22:58)
[2021-12-20] MEDS ORDERED: cephalexin 250mg capsule PO ONE (23:00)
[2021-12-20 23:35] VITALS: BP 237/121
== END 2021-12-20 23:42 | disposition home or self-care (01) ==
LOC: ER 17:32
DX: L03.031 Cellulitis of right toe (principal); I10 Essential (primary) hypertension; G62.9 Polyneuropathy, unspecified; Z87.891 Personal history of nicotine dependence; Z79.82 Long term (current) use of aspirin; Z79.2 Long term (current) use of antibiotics; Z79.899 Other long term (current) drug therapy
CPT/HCPCS: 73630; 99284

== ENCOUNTER 2024-04-22 13:44 | Emergency (ER) | payer MEDICARE ==
[~2024-04-22] VITALS: Ht 172.7 cm; Wt 91.4 kg
[2024-04-22 13:53] VITALS: BP 108/56; PULSE 78; RESP 16; TEMP 98.5; O2SAT 97
[2024-04-22] MEDS ORDERED: oxymetazoline 15 ML nasal spray NS ONE (14:00)
== END 2024-04-22 14:37 | disposition home or self-care (01) ==
LOC: ER 13:45
DX: R04.0 Epistaxis (principal); G62.9 Polyneuropathy, unspecified; Z79.02 Long term (current) use of antithrombotics/antiplatelets; Z79.899 Other long term (current) drug therapy; Z79.82 Long term (current) use of aspirin; Z98.890 Other specified postprocedural states
CPT/HCPCS: 99281